=== PATIENT | female | born 1980 | race African-American/Black ===

== ENCOUNTER 2016-03-18 15:00 | Emergency (ER) | payer BC, OTHER ==
[~2016-03-18] VITALS: Ht 162.6 cm; Wt 63.5 kg
--- NOTE | ~2016-03-18 | EKG ---
[address] [address] ELECTROCARDIOGRAM REPORT Name: SAHILCHERYLYUMIKO Room #: REG [facility] [place]#: [id number] Admission: 03/18/16 Attend Phys: Discharge: Date of : 82 Report #: [id number] THIS REPORT FOR: //name// [facility] ED Test Date: 2016-03-18 Test Time: 15:18:02 Pat Name: YUMIKO PALACIOS Department: Room: Gender: F [employer]: LES : 1980 Requested By: Prabhakar Vitale Order Number: [id number] MD: Wesley Gastelum Measurements Intervals [place] Rate: 80 P: 30 W[place]: 160 QRS: 16 QRSD: 92 T: 44 QT: 375 QTc: 433 Interpretive Statements Sinus rhythm No previous ECG available for comparison Electronically Signed On 03-18-2016 16:36:54 [employer] by Wesley Gastelum [email or web address] <ELECTRONICALLY SIGNED> By: Wesley Gasteulm MD 03/18/16 1636 1518 1518 Wesley Gastelum MD /EPI
[~2016-03-18 15:00] MED LIST: ACETAMINOPHEN325 M1 PO; BISACODYL SUPP10 MG RECTAL; ERYTHROMYCIN E3.5 G1 OPHTHALMIC; ERYTHROMYCIN E3.5 G3 OPHTHALMIC; FLEXERIL PO; GAS RELIEF80 MG PO; HYDROCODONE-AP1 EAC6 PO; IBUPROFEN 400400 M1 PO; IBUPROFEN 800800 M1 PO; MOBIC15 MG PO; NAPROSYN500 MG PO; NAPROXEN DELAY500 M1; NOHOMEMEDICATIONS; NORCO 5-325 TA1 EACH PO; PENICILLIN V P500 MG PO; PENICILLIN VK500 M1 PO; ULTRAM 50MG TAB50 MG PO; WOMEN'S DAILY1 EAC2 PO
[2016-03-18 15:24] LABS: ABSOLUTE NEUTROPHILS 3.5 thou/uL (1.4-8.2); BASOPHILS 0.5 % (0.0-2.0); EOSINOPHILS 0.9 % (0.0-3.0); HEMATOCRIT 38.1 % (37.0-47.0); HEMOGLOBIN 12.7 gm/dL (12.0-15.0); LYMPHOCYTES 28.9 % (24.0-44.0); MCH 28.8 pg (26.0-34.0); MCHC 33.4 % (28.0-37.0); MCV 86.2 fL (80.0-100.0); MONOCYTES 11.5 % (1.0-8.0); PLATELET COUNT 256 thou/uL (150-400); POLYS 58.2 % (36.0-66.0); RBC 4.42 mil/uL (4.20-5.00); RDW 13.9 % (10.5-14.5)
[2016-03-18 15:28] LABS: MANUAL DIFF NO
[2016-03-18 15:34] LABS: CALCIUM 9.3 mg/dL (8.5-10.1); CREATININE 0.9 mg/dL (0.6-1.3); POTASSIUM 3.3 mmol/L (3.5-5.1)
[2016-03-18 16:56] LABS: URINE BILIRUBIN NEGATIVE (Negative); URINE BLOOD TRACE (Negative); URINE COLOR YELLOW; URINE GLUCOSE-RANDOM* NEGATIVE (Negative); URINE KETONES 1+ (Negative); URINE LEUKOCYTES-REFLEX NEGATIVE (Negative); URINE PROTEIN (DIPSTICK) NEGATIVE (Negative); URINE UROBILINOGEN 0.2 E.U./dl (0.2-1.0)
[2016-03-18 17:39] VITALS: BP 150/88
== END 2016-03-18 17:41 | disposition home or self-care (01) ==
LOC: ER 15:00
PROVIDERS: Physician Assistant
DX: F10.129 Alcohol abuse with intoxication, unspecified (principal); E87.6 Hypokalemia; J45.909 Unspecified asthma, uncomplicated